=== PATIENT | female | born 1985 | race Two or more races ===

== ENCOUNTER 2020-01-19 09:52 | Emergency (ER) | payer MEDICAID, SELFPAY ==
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
[2020-01-19 10:04] VITALS: BP 188/109; PULSE 59; RESP 16; TEMP 36.1; O2SAT 98; BMI 34.9
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
--- NOTE | 2020-01-19 11:00 | PC.NURSE ---
PATIENT A&OX3, PT STATES SHE HAS 9/10 HAND PAIN, PT HAS + CSM/PULSES, PT UNABLE TO MOVE FINGERS WELL AT THIS TIME, PT CALM/COMPLIANT SITTING AT SIDE OF BED TALKING ON THE PHONE.
== END 2020-01-19 11:23 | disposition home or self-care (01) ==
PROVIDERS: Emergency Provider Emergency Medicine; PCP Internal Medicine
DX: M24.541 Contracture, right hand (principal); I10 Essential (primary) hypertension; F12.90 Cannabis use, unspecified, uncomplicated
CPT/HCPCS: 73130; 99283; 99284

== ENCOUNTER 2020-03-07 10:59 | Outpatient (REF) | payer MEDICAID, SELFPAY ==
[2020-03-07 11:30] LABS: MANUAL DIFF FLAG NO
[2020-03-07 11:49] LABS: Basophils Absolute Auto 0.1 X10*3/uL (0.0-0.2); Basophils Percent Auto 0.9 % (0-2); Eosinophils Absolute Auto 0.2 X10*3/uL (0.0-0.4); Eosinophils Percent Auto 2.3 % (0-4); Hematocrit 35.4 % (37-47); Hemoglobin 11.4 g/dl (12.0-16.0); Imm Gran Abs Auto 0.03 X10*3/uL (0.00-0.03); Imm Gran Pct Auto 0.4 % (0.0-0.4); Lymphocytes Absolute Auto 2.2 X10*3/uL (1.2-4.9); Mean Corpuscular HGB Conc 32.2 g/dl (31.0-35.0); Mean Corpuscular Hemoglobin 25.4 pg (27.0-33.0); Monocytes Absolute Auto 0.6 X10*3/uL (0.1-1.2); Neutrophils Absolute Auto 4.8 X10*3/uL (2.0-8.3); Neutrophils Percent Auto 61.4 % (45-73); Platelet Count 333 X10*3/uL (160-400); Red Blood Count 4.48 X10*6/uL (4.20-5.50); Red Cell Distribution Width 17.2 % (11.0-16.0); White Blood Count 7.9 X10*3/uL (4.8-10.8)
[2020-03-07 12:14] LABS: Ferritin 6 ng/mL (10-122)
== END 2020-03-07 11:00 | disposition home or self-care (01) ==
LOC: HO.LAB 10:59
PROVIDERS: PCP Internal Medicine; Visit Provider Internal Medicine
DX: D50.8 Other iron deficiency anemias (principal); I10 Essential (primary) hypertension; J30.1 Allergic rhinitis due to pollen; K21.9 Gastro-esophageal reflux disease without esophagitis
CPT/HCPCS: 36415; 82728; 85025

== ENCOUNTER 2020-03-28 11:30 | Outpatient (RCR) | payer MEDICAID, SELFPAY ==
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
== END 2020-05-09 15:21 | disposition other institution (70) ==
LOC: HO.OT 11:30
PROVIDERS: PCP Internal Medicine; Visit Provider Internal Medicine
DX: S67.21XD Crushing injury of right hand, subsequent encounter (principal)
CPT/HCPCS: 29130; 29131; 97035; 97110; 97167; 97760

== ENCOUNTER 2021-07-31 10:39 | Outpatient (REF) | payer MEDICAID, SELFPAY ==
[2021-07-31 12:54] LABS: MANUAL DIFF FLAG NO
[2021-07-31 12:55] LABS: Basophils Absolute Auto 0.1 X10*3/uL (0.0-0.2); Basophils Percent Auto 1.1 % (0-2); Eosinophils Absolute Auto 0.3 X10*3/uL (0.0-0.4); Eosinophils Percent Auto 3.3 % (0-4); Hematocrit 37.2 % (37.0-47.0); Hemoglobin 11.7 g/dl (12.0-16.0); Imm Gran Abs Auto 0.04 X10*3/uL (0.00-0.03); Imm Gran Pct Auto 0.4 % (0.0-0.4); Lymphocytes Absolute Auto 2.6 X10*3/uL (1.2-4.9); Lymphocytes Percent Auto 25.6 % (20-40); Mean Corpuscular HGB Conc 31.5 g/dl (31.0-35.0); Mean Corpuscular Hemoglobin 25.3 pg (27.0-33.0); Mean Corpuscular Volume 80.5 fL (80.0-98.0); Mean Platelet Volume 11.8 fL (9.4-12.3); Monocytes Absolute Auto 0.6 X10*3/uL (0.1-1.2); Monocytes Percent Auto 6.2 % (2-11); Neutrophils Absolute Auto 6.3 x10*3/uL (2.0-8.3); Neutrophils Percent Auto 63.4 % (45-73); Platelet Count 402 X10*3/uL (160-400); Red Blood Count 4.62 X10*6/uL (4.20-5.50); Red Cell Distribution Width 15.8 % (11.0-16.0)
[2021-07-31 13:45] LABS: Alanine Aminotransferase < 6 U/L (0-31); Albumin Level 3.9 g/dL (3.5-5.0); Alkaline Phosphatase 60 U/L (39-117); Anion Gap 12 (12-20); Aspartate Amino Transferase 11 U/L (5-31); Bilirubin Total 0.7 mg/dL (0.0-1.0); Blood Urea Nitrogen 11 mg/dL (9-16); Calcium 9.8 mg/dL (8.4-10.2); Carbon Dioxide 28 mmol/L (22-29); Chloride 101 mmol/L (96-108); Cholesterol 214 mg/dL; Estimated Glomerular Filt Rate > 60; Glucose Random 94 mg/dL (60-115); HDL Cholesterol 39 mg/dL; LDL Cholesterol Calculated 157 mg/dl; Potassium 3.7 mmol/L (3.3-5.1); Sodium 137 mmol/L (135-145); Total Protein 7.4 g/dL (6.5-8.0); Triglycerides 94 mg/dL
== END 2021-07-31 10:40 | disposition home or self-care (01) ==
LOC: HO.10HDL 10:39
PROVIDERS: Visit Provider Internal Medicine
DX: Z00.00 Encounter for general adult medical examination without abnormal findings (principal); I10 Essential (primary) hypertension; R12 Heartburn; Z72.0 Tobacco use
CPT/HCPCS: 36415; 80053; 80061; 85025

== ENCOUNTER 2022-03-28 13:47 | Outpatient (REF) | payer MEDICAID, SELFPAY ==
--- NOTE | ~2022-03-28 | XR_ITS ---
EXAMINATION: XR CHEST CLINICAL INFORMATION: Pneumonia COMPARISON: March 29, 2014 TECHNIQUE: 2 views of the chest were obtained. FINDINGS: No significant abnormality is noted involving the heart, lungs, mediastinum, bony thorax or soft tissues. XR/XR chest 2V IMPRESSION: No acute disease.
== END 2022-03-28 13:48 | disposition home or self-care (01) ==
LOC: HO.XRAY 13:47
PROVIDERS: PCP Internal Medicine; Visit Provider Internal Medicine
DX: J18.9 Pneumonia, unspecified organism (principal)
CPT/HCPCS: 71046

== ENCOUNTER 2022-06-06 12:44 | Outpatient (REF) | payer MEDICAID, SELFPAY ==
[2022-06-06 13:43] LABS: MANUAL DIFF FLAG NO
[2022-06-06 13:49] LABS: Basophils Absolute Auto 0.1 X10*3/uL (0.0-0.2); Basophils Percent Auto 0.8 % (0-2); Eosinophils Absolute Auto 0.3 X10*3/uL (0.0-0.4); Eosinophils Percent Auto 4.5 % (0-4); Hematocrit 34.3 % (37.0-47.0); Hemoglobin 10.8 g/dl (12.0-16.0); Imm Gran Abs Auto 0.07 X10*3/uL (0.00-0.03); Imm Gran Pct Auto 0.9 % (0.0-0.4); Lymphocytes Absolute Auto 2.1 X10*3/uL (1.2-4.9); Mean Corpuscular HGB Conc 31.5 g/dl (31.0-35.0); Mean Corpuscular Hemoglobin 24.9 pg (27.0-33.0); Mean Corpuscular Volume 79.2 fL (80.0-98.0); Mean Platelet Volume 11.2 fL (9.4-12.3); Monocytes Absolute Auto 0.5 X10*3/uL (0.1-1.2); Monocytes Percent Auto 6.7 % (2-11); Neutrophils Absolute Auto 4.4 x10*3/uL (2.0-8.3); Neutrophils Percent Auto 59.1 % (45-73); Platelet Count 368 X10*3/uL (160-400); Red Blood Count 4.33 X10*6/uL (4.20-5.50); Red Cell Distribution Width 18.5 % (11.0-16.0); White Blood Count 7.5 X10*3/uL (4.8-10.8)
[2022-06-06 14:02] LABS: Estimated Average Glucose 91 mg/dL; Hemoglobin A1c % 4.8 %
[2022-06-06 14:19] LABS: Alanine Aminotransferase < 6 U/L (0-31); Albumin Level 3.7 g/dL (3.5-5.0); Alkaline Phosphatase 51 U/L (39-117); Anion Gap 11 (12-20); Aspartate Amino Transferase 13 U/L (5-31); Bilirubin Total 0.3 mg/dL (0.0-1.0); Blood Urea Nitrogen 5 mg/dL (9-16); Calcium 9.2 mg/dL (8.4-10.2); Carbon Dioxide 32 mmol/L (22-29); Chloride 103 mmol/L (96-108); Cholesterol 210 mg/dL; Estimated Glomerular Filt Rate > 60; Glucose Fasting 78 mg/dL (60-99); HDL Cholesterol 43 mg/dL; LDL Cholesterol Calculated 155 mg/dl; Potassium 3.8 mmol/L (3.3-5.1); Sodium 142 mmol/L (135-145); Total Protein 6.5 g/dL (6.5-8.0); Triglycerides 64 mg/dL
[2022-06-06 14:34] LABS: Thyroid Stimulating Hormone 0.68 uIU/mL (0.32-4.0)
== END 2022-06-06 12:45 | disposition home or self-care (01) ==
LOC: HO.10HDL 12:44
PROVIDERS: Visit Provider Internal Medicine
DX: E78.00 Pure hypercholesterolemia, unspecified (principal); G44.209 Tension-type headache, unspecified, not intractable; I10 Essential (primary) hypertension; J30.89 Other allergic rhinitis
CPT/HCPCS: 36415; 80053; 80061; 83036; 84443; 85025

== ENCOUNTER → 2022-08-07 10:29 | Outpatient (BNVA) | payer MEDICAID, SELFPAY | PROVIDERS: PCP Internal Medicine; Visit Provider Physician Assistant Surgical ==

== ENCOUNTER 2022-11-19 14:06 | Outpatient (REF) | payer MEDICAID, SELFPAY ==
[2022-11-19 14:29] LABS: MANUAL DIFF FLAG NO
[2022-11-19 14:42] LABS: Basophils Absolute Auto 0.1 X10*3/uL (0.0-0.2); Basophils Percent Auto 1.6 % (0-2); Eosinophils Absolute Auto 0.3 X10*3/uL (0.0-0.4); Eosinophils Percent Auto 3.6 % (0-4); Hematocrit 33.8 % (37.0-47.0); Hemoglobin 10.7 g/dl (12.0-16.0); Imm Gran Abs Auto 0.02 X10*3/uL (0.00-0.03); Imm Gran Pct Auto 0.3 % (0.0-0.4); Lymphocytes Absolute Auto 1.9 X10*3/uL (1.2-4.9); Lymphocytes Percent Auto 25.7 % (20-40); Mean Corpuscular HGB Conc 31.7 g/dl (31.0-35.0); Mean Corpuscular Hemoglobin 24.4 pg (27.0-33.0); Mean Corpuscular Volume 77.2 fL (80.0-98.0); Mean Platelet Volume 11.6 fL (9.4-12.3); Monocytes Absolute Auto 0.5 X10*3/uL (0.1-1.2); Monocytes Percent Auto 6.7 % (2-11); Neutrophils Absolute Auto 4.5 x10*3/uL (2.0-8.3); Neutrophils Percent Auto 62.1 % (45-73); Platelet Count 409 X10*3/uL (160-400); Red Blood Count 4.38 X10*6/uL (4.20-5.50); Red Cell Distribution Width 16.9 % (11.0-16.0); White Blood Count 7.3 X10*3/uL (4.8-10.8)
[2022-11-19 15:34] LABS: Ferritin 5 ng/mL (10-122)
== END 2022-11-19 14:07 | disposition home or self-care (01) ==
LOC: HO.LAB 14:06
PROVIDERS: PCP Internal Medicine; Visit Provider Internal Medicine
DX: Z00.00 Encounter for general adult medical examination without abnormal findings (principal); K21.9 Gastro-esophageal reflux disease without esophagitis; D50.8 Other iron deficiency anemias; E78.00 Pure hypercholesterolemia, unspecified
CPT/HCPCS: 36415; 82728; 85025

== ENCOUNTER 2022-12-24 13:58 | Outpatient (REF) | payer MEDICAID, SELFPAY ==
--- NOTE | ~2022-12-24 | XR_ITS ---
STUDY: Cervical, thoracic and lumbar spine COMPARISON: 03/28/2022 chest INDICATION: Neck, back and lumbar pain. TECHNIQUE: 5 view cervical spine, 2 view thoracic spine, three-view lumbar spine FINDINGS: Cervical spine: Cervical lordotic straightening/mild reversal vertebral bodies and intervertebral discs are maintained in height. Odontoid is intact although the tip remains obscured. Posterior elements are aligned and no prevertebral soft tissue swelling seen. Lung apices are clear. Thoracic spine: Alignment is within normal limits. Multilevel spurring and mild compression deformities. Pedicles and visualized ribs within normal limits. Mildly Heart, mediastinum and pulmonary vessels within normal limits. There is bilateral paravertebral soft tissue prominence, right greater than left, from about T8-T11 on frontal view with no reproduction on lateral view. Increased markings extending from the right hilum to the right base likely superimposition of structures. Lap band. Lumbar spine: 5 lumbar type vertebral bodies. Vertebral bodies and intervertebral discs are maintained in height. Visualized pedicles and SI joints within normal limits. Trace retrolisthesis L5 on S1. XR/XR cervical spine 2V IMPRESSION: Cervical lordosis/mild reversal, question spasm. Trace retrolisthesis L5 on S1 otherwise no bony pathology lumbar spine. Mild degenerative changes thoracic spine. Paravertebral soft tissue prominence lower thorax possibly artifactual. Consider follow-up chest radiograph. If persistent, CT would be advised.
--- NOTE | ~2022-12-24 | XR_ITS ---
STUDY: Cervical, thoracic and lumbar spine COMPARISON: 03/28/2022 chest INDICATION: Neck, back and lumbar pain. TECHNIQUE: 5 view cervical spine, 2 view thoracic spine, three-view lumbar spine FINDINGS: Cervical spine: Cervical lordotic straightening/mild reversal vertebral bodies and intervertebral discs are maintained in height. Odontoid is intact although the tip remains obscured. Posterior elements are aligned and no prevertebral soft tissue swelling seen. Lung apices are clear. Thoracic spine: Alignment is within normal limits. Multilevel spurring and mild compression deformities. Pedicles and visualized ribs within normal limits. Mildly Heart, mediastinum and pulmonary vessels within normal limits. There is bilateral paravertebral soft tissue prominence, right greater than left, from about T8-T11 on frontal view with no reproduction on lateral view. Increased markings extending from the right hilum to the right base likely superimposition of structures. Lap band. Lumbar spine: 5 lumbar type vertebral bodies. Vertebral bodies and intervertebral discs are maintained in height. Visualized pedicles and SI joints within normal limits. Trace retrolisthesis L5 on S1. XR/XR lumbar spine 2-3V IMPRESSION: Cervical lordosis/mild reversal, question spasm. Trace retrolisthesis L5 on S1 otherwise no bony pathology lumbar spine. Mild degenerative changes thoracic spine. Paravertebral soft tissue prominence lower thorax possibly artifactual. Consider follow-up chest radiograph. If persistent, CT would be advised.
--- NOTE | ~2022-12-24 | XR_ITS ---
STUDY: Cervical, thoracic and lumbar spine COMPARISON: 03/28/2022 chest INDICATION: Neck, back and lumbar pain. TECHNIQUE: 5 view cervical spine, 2 view thoracic spine, three-view lumbar spine FINDINGS: Cervical spine: Cervical lordotic straightening/mild reversal vertebral bodies and intervertebral discs are maintained in height. Odontoid is intact although the tip remains obscured. Posterior elements are aligned and no prevertebral soft tissue swelling seen. Lung apices are clear. Thoracic spine: Alignment is within normal limits. Multilevel spurring and mild compression deformities. Pedicles and visualized ribs within normal limits. Mildly Heart, mediastinum and pulmonary vessels within normal limits. There is bilateral paravertebral soft tissue prominence, right greater than left, from about T8-T11 on frontal view with no reproduction on lateral view. Increased markings extending from the right hilum to the right base likely superimposition of structures. Lap band. Lumbar spine: 5 lumbar type vertebral bodies. Vertebral bodies and intervertebral discs are maintained in height. Visualized pedicles and SI joints within normal limits. Trace retrolisthesis L5 on S1. XR/XR thoracic spine 2V IMPRESSION: Cervical lordosis/mild reversal, question spasm. Trace retrolisthesis L5 on S1 otherwise no bony pathology lumbar spine. Mild degenerative changes thoracic spine. Paravertebral soft tissue prominence lower thorax possibly artifactual. Consider follow-up chest radiograph. If persistent, CT would be advised.
== END 2022-12-24 13:59 | disposition home or self-care (01) ==
LOC: HO.XRAY 13:58
PROVIDERS: PCP Internal Medicine; Visit Provider Physical Medicine & Rehabilitation
DX: M47.892 Other spondylosis, cervical region (principal); M47.814 Spondylosis without myelopathy or radiculopathy, thoracic region; M47.896 Other spondylosis, lumbar region
CPT/HCPCS: 72040; 72070; 72100

== ENCOUNTER 2024-04-23 14:23 | Emergency (ER) | payer MEDICAID, SELFPAY ==
--- NOTE | ~2024-04-23 | XR_ITS ---
EXAMINATION: XR ANKLE 3 OR MORE VIEWS RIGHT HISTORY: Swelling. Evaluate for osteo lateral malleolus COMPARISON: There are no prior studies available for comparison. FINDINGS: Three views of the right ankle are submitted. Osseous mineralization is normal. There is no fracture or dislocation. The joint spaces are preserved. There is a small plantar calcaneal spur. There is soft tissue swelling over the lateral malleolus. XR/XR ankle RT min 3V IMPRESSION: Soft tissue swelling over the lateral malleolus. No plain film evidence of osteomyelitis. If this remains a clinical concern, three-phase bone scan or MRI could be performed. Electronically signed by: Blaine Ibrahim MD 04/23/2024 03:25 PM [facility]
[2024-04-23 14:57] VITALS: BP 170/98; PULSE 89; RESP 16; TEMP 36.3; O2SAT 98; BMI 35.0
--- NOTE | 2024-04-23 15:00 | ED_ITS ---
HPI - General Adult General Chief complaint: Wound/Laceration Stated complaint: r ankle wound Related Data Home Medications ?Medication ?Instructions ?Recorded ?Confirmed amitriptyline 50 mg tablet 50 mg PO BEDTIME 08/07/22 amlodipine 5 mg tablet 5 mg PO DAILY 08/07/22 azithromycin 250 mg tablet 250 mg PO DAILY 08/07/22 fluticasone propionate 50 2 spray intranasal DAILY 08/07/22 mcg/actuation nasal spray,suspension (Flonase Allergy Relief) loratadine 10 mg tablet 10 mg PO DAILY 08/07/22 losartan 100 1 tab PO DAILY 08/07/22 mg-hydrochlorothiazide 25 mg tablet omeprazole 40 mg capsule,delayed 40 mg PO DAILY 08/07/22 release Allergies Allergy/AdvReac Type Severity Reaction Status Date / Time Penicillins Allergy Unknown Unknown Verified 04/23/24 15:00 acetaminophen [From TYLENOL] AdvReac Unknown UNKNOWN Verified 04/23/24 15:00 ibuprofen [IBUPROFEN] AdvReac Unknown UNKNOWN Verified 04/23/24 15:00 [facility] Past Medical History Medical History (Updated 06/09/24 @ 17:57 by Aleksander Dahl) HTN (hypertension) Surgical History (Updated 08/07/22 @ 10:41 by JOSE Hensley) Hx of adenoidectomy Hx of tonsillectomy Hx of laparoscopic gastric banding Family History Family History (Updated 08/07/22 @ 10:42 by JOSE Hensley) Mother Hypertension Father Hypertension Diabetes Brother No problems noted. Sister No problems noted. Social History Social History (Updated 08/07/22 @ 10:41 by JOSE Hensley) Alcohol intake: never Patient Tobacco Use Status: Current everyday Tobacco user Cigarettes Per Day: 3 Substance Use Type: Marijuana Advance Directives: No Advance Directives Information Provided: No Do you have a plan to hurt others: No Plan Physical Exam ED Vital Signs: BMI result Body Mass Index 35.0 Course Course Course Narrative: RME, this is a rapid medical exam performed by Kevin Dahl please refer to primary provider for complete H&P- 39-year-old female presents for evaluation of a nonhealing wound to her right ankle. She reports that she has had a wounds since January, 3 months ago. She has been treating with [id number] ointments with some improvement. She reports areas still painful, red and swollen. Plan for labs, x-ray Medical Decision Making Lab Data 04/23/24 15:11 04/23/24 15:11 Labs: Lab Results 04/23/24 Range/Units 15:11 WBC 10.0 (4.8-10.8) X10*3/uL RBC 4.54 (4.20-5.50) X10*6/uL Hgb 10.7 L (12.0-16.0) g/dl Hct 34.1 L (37.0-47.0) % MCV 75.1 L (80.0-98.0) fL MCH 23.6 L (27.0-33.0) pg MCHC 31.4 (31.0-35.0) g/dl RDW 18.0 H (11.0-16.0) % Plt Count 433 H (160-400) X10*3/uL MPV 10.6 (9.4-12.3) fL Immature Gran % (Auto) 0.5 H (0.0-0.4) % Neut % (Auto) 60.5 (45-73) % Lymph % (Auto) 24.3 (20-40) % [place] % (Auto) 6.9 (2-11) % Eos % (Auto) 6.7 H (0-4) % Baso % (Auto) 1.1 (0-2) % Lymph # (Auto) 2.4 (1.2-4.9) X10*3/uL [place] # (Auto) 0.7 (0.1-1.2) X10*3/uL Eos # (Auto) 0.7 H (0.0-0.4) X10*3/uL Baso # (Auto) 0.1 (0.0-0.2) X10*3/uL Abs Immat Gran (auto) 0.05 H (0.00-0.03) X10*3/uL Absolute Neuts (auto) 6.1 (2.0-8.3) x10*3/uL Absolute Nucleated RBC 0.000 (0.0-0.012) X10*3/uL Nucleated RBC % (auto) 0.0 (0.0-0.2) /100WBC ESR 13 (0-20) MM/HR Sodium 138 (135-145) mmol/L Potassium 3.7 (3.3-5.1) mmol/L Chloride 105 (96-108) mmol/L Carbon Dioxide 26 (22-29) mmol/L Anion Gap 11 L (12-20) BUN 8 L (9-16) mg/dL Creatinine 0.79 (0.5-1.4) mg/dL Estim Creat Clear Calc 122.0 Estimated GFR > 60 Random Glucose 84 (60-115) mg/dL Lactic Acid 0.9 (0.5-2.0) mmol/L Calcium 9.1 (8.4-10.2) mg/dL C-Reactive Protein 0.23 (< or = 0.50) mg/dL Discharge Plan Discharge Clinical Impression: Ankle wound Patient Disposition: Left W/O Completing Treatment Prescriptions: No Action loratadine 10 mg tablet 10 mg PO DAILY omeprazole 40 mg capsule,delayed release(DR/EC) 40 mg PO DAILY amlodipine 5 mg tablet 5 mg PO DAILY azithromycin 250 mg tablet 250 mg PO DAILY Rx Instructions: start on day 2 of therapy amitriptyline 50 mg tablet 50 mg PO BEDTIME fluticasone propionate [Flonase Allergy Relief] 50 mcg/actuation spray,suspension 2 spray intranasal DAILY Rx Instructions: administer into each nostril losartan-hydrochlorothiazide 100-25 mg tablet 1 tab PO DAILY Discharge Date/Time: 04/23/24 19:35
[2024-04-23 15:19] LABS: MANUAL DIFF FLAG NO
[2024-04-23 15:22] LABS: Basophils Absolute Auto 0.1 X10*3/uL (0.0-0.2); Basophils Percent Auto 1.1 % (0-2); Eosinophils Absolute Auto 0.7 X10*3/uL (0.0-0.4); Eosinophils Percent Auto 6.7 % (0-4); Hematocrit 34.1 % (37.0-47.0); Hemoglobin 10.7 g/dl (12.0-16.0); Imm Gran Abs Auto 0.05 X10*3/uL (0.00-0.03); Imm Gran Pct Auto 0.5 % (0.0-0.4); Lymphocytes Absolute Auto 2.4 X10*3/uL (1.2-4.9); Lymphocytes Percent Auto 24.3 % (20-40); Mean Corpuscular HGB Conc 31.4 g/dl (31.0-35.0); Mean Corpuscular Hemoglobin 23.6 pg (27.0-33.0); Mean Corpuscular Volume 75.1 fL (80.0-98.0); Mean Platelet Volume 10.6 fL (9.4-12.3); Monocytes Absolute Auto 0.7 X10*3/uL (0.1-1.2); Monocytes Percent Auto 6.9 % (2-11); Neutrophils Absolute Auto 6.1 x10*3/uL (2.0-8.3); Neutrophils Percent Auto 60.5 % (45-73); Platelet Count 433 X10*3/uL (160-400); Red Blood Count 4.54 X10*6/uL (4.20-5.50)
[2024-04-23 15:34] LABS: Anion Gap 11 (12-20); Blood Urea Nitrogen 8 mg/dL (9-16); C Reactive Protein 0.23 mg/dL (< or = 0.50); Calcium 9.1 mg/dL (8.4-10.2); Carbon Dioxide 26 mmol/L (22-29); Chloride 105 mmol/L (96-108); Estimated Glomerular Filt Rate > 60; Glucose Random 84 mg/dL (60-115); Potassium 3.7 mmol/L (3.3-5.1); Sodium 138 mmol/L (135-145)
[2024-04-23 15:36] LABS: Lactic Acid 0.9 mmol/L (0.5-2.0)
[2024-04-23 15:58] LABS: Erythrocyte Sedimentation Rate 13 MM/HR (0-20)
== END 2024-04-23 19:35 | disposition left against medical advice (07) ==
PROVIDERS: Physician Assistant; Emergency Provider Emergency Medicine; PCP Internal Medicine
DX: S91.001A Unspecified open wound, right ankle, initial encounter (principal); X58.XXXA Exposure to other specified factors, initial encounter; Y93.9 Activity, unspecified; Y92.9 Unspecified place or not applicable; Y99.9 Unspecified external cause status; I10 Essential (primary) hypertension; Z87.891 Personal history of nicotine dependence
CPT/HCPCS: 36415; 73610; 80048; 83605; 85025; 85652; 86140; 87040; 99281; 99283

== ENCOUNTER → 2024-04-23 14:59 | Outpatient (BNV) | payer MEDICAID, SELFPAY | PROVIDERS: PCP Internal Medicine; Visit Provider Radiology Diagnostic Radiology | DX: R22.41 Localized swelling, mass and lump, right lower limb (principal) | CPT/HCPCS: 73610 ==

== ENCOUNTER 2025-01-20 09:49 | Outpatient (REF) | payer MEDICAID, SELFPAY ==
--- OUTSIDE RECORDS SUMMARY | 2025-01-20 11:41 | XMS_ITS | Encounter Summary ---
Author Organization [facility] Address [address] [place] [phone] Phone Care Team Providers Care Lift Builder Whole Name Role Phone Unavailable Primary Care Provider Unavailabl e Encounter Details Date Type Department Care Team (Late st Contact Info) Description 08/16/2009 Documentation [facility] Family Medicine [address] [place] [address] Family Medicine, Physician [facility] [place] [address] Social History Tobacco Use Types Packs/Day Years Used Date Smoking Tobacco: Never Assessed Comments Unknown Sex and Gender Information Value Date Recorded Sex Assigned at Not on file Legal Sex Female 4:31 PM EDT Gender Identity Not on file Sexual Orientation Not on file documented as of this encounter Plan of Treatment Not on file documented as of this encounter Visit Diagnoses Not on filedocumented in this encounter
--- OUTSIDE RECORDS SUMMARY | 2025-01-20 11:41 | XMS_ITS | Encounter Summary ---
Author Organization [facility] Address [address] [place] [phone] Phone Care Team Providers Care Substation Operator Transforming Name Role Phone Unavailable Primary Care Provider Unavailabl e Encounter Details Date Type Department Care Team (Late st Contact Info) Description 11/15/2016 Conversion Encounter [facility] - [address] [address] Social History Tobacco Use Types Packs/Day Years [...]
--- OUTSIDE RECORDS SUMMARY | 2025-01-20 11:41 | XMS_ITS | Clinical Summary ---
Author Organization [facility] Address [address] [place] [address] Phone Care Team Providers Care Paleology Professor Name Role Phone Unavailable Primary Care Provider Unavailabl e Immunizations Immunization Administration Dates Next Due DTP 07/15/1990, 8,1986,05/28,1986 HPV, Quadrivalent 12/12/2007 Hep B, ped/adol 01/22/2002,04/02/2001,01/09/2001 Hib (PRP-T) 10/29/1989 MMR 11/26/1997,04/14/1987 Meningococcal Conj (Menactra) MCV4P 12/12/2007 OPV 07/15/1990, 8,1986,04/12 Td (adult) (MBL), 2 Lf tetan us toxoid, PF, adsorbed 06/19/1999 Tdap 12/12/2007 Unknown Vaccine 12/05/2005, 5,01/28/2003,01/22 Social History Tobacco Use Types Packs/Day Years Used Date Smoking Tobacco: Never Assessed Comments Unknown Sex and Gender Information Value Date Recorded Sex Assigned at Not on file Legal Sex Female 4:31 PM EDT Gender Identity Not on file Sexual Orientation Not on file Plan of Treatment Health Maintenance Due Date Last Done Comments Varicella Vaccines (1 of 2 - 13+ 2-dose series) 1999 HPV Vaccines (2 - 3-dose series) 01/09/2008 12/12/2007 DTaP,Tdap,and Td Vaccines (7 - Td or Tdap) 12/11/2017 12/12/2007, 06/19/1999, 07/15/1990, Additional history exists Influenza Vaccines (#1) 2024 COVID-19 Vaccine ( season) 2024 HIB Vaccines Completed 10/29/1989 IPV Vaccines Completed 07/15/1990, 07/01, 1986, Additional history exists MMR Vaccines Completed 11/26/1997, 04/14/1987 Hepatitis B Vaccines Completed 01/22/2002, 04/02/2001, 01/09/2001 Meningococcal Vaccine Aged Out 12/12/2007 No chava swathi eligible based on patient's age to complete this topic Hepatitis A Vaccines Aged Out No long er eligible based on patient's age to complete this topic Men B Vaccine Aged Out No longer elig ible based on patient's age to complete this topic Pneumococcal Vaccine Aged Out No long er eligible based on patient's age to complete this topic
[2025-01-20 11:47] LABS: Alanine Aminotransferase < 6 U/L (0-31); Albumin Level 4.1 g/dL (3.5-5.0); Alkaline Phosphatase 66 U/L (39-117); Anion Gap 11 (12-20); Aspartate Amino Transferase 15 U/L (5-31); Blood Urea Nitrogen 10 mg/dL (9-16); Calcium 9.5 mg/dL (8.4-10.2); Carbon Dioxide 31 mmol/L (22-29); Chloride 102 mmol/L (96-108); Estimated Glomerular Filt Rate > 60; Potassium 3.7 mmol/L (3.3-5.1); Sodium 140 mmol/L (135-145); Total Protein 7.4 g/dL (6.5-8.0)
[2025-01-20 11:54] LABS: HBS Num1 2.70 mIU/mL (0-7.99); HBc Num1 0.11 S/CO (0.00-0.79); HBsAGNum1 0.31 S/CO (0.00-0.99); Hepatitis B Surface Antigen Negative (Negative); ~Hepatitis B Surface Antibody NONREACTIVE (Nonreactive)
[2025-01-20 11:58] LABS: Ferritin 38 ng/mL (10-122)
[2025-01-21 13:58] LABS: HCV RNA PCR Qn <1.18 NOT DETECTED Log IU/mL (NOT DETECTED); HCV RNA PCR Qn <15 NOT DETECTED IU/mL (NOT DETECTED)
== END 2025-01-20 09:50 | disposition home or self-care (01) ==
LOC: HO.LAB 09:49
PROVIDERS: PCP Internal Medicine; Visit Provider Internal Medicine
DX: Z11.59 Encounter for screening for other viral diseases (principal); I10 Essential (primary) hypertension; K21.9 Gastro-esophageal reflux disease without esophagitis; D50.8 Other iron deficiency anemias; E66.01 Morbid (severe) obesity due to excess calories; F17.201 Nicotine dependence, unspecified, in remission; R13.10 Dysphagia, unspecified
CPT/HCPCS: 36415; 80053; 82728; 86704; 86706; 87340; 87522